=== PATIENT | male | born 1990 | race Two or more races ===

== ENCOUNTER 2024-07-10 16:13 | Emergency (ER) | payer MEDICAID, SELFPAY ==
[2024-07-10 16:16] VITALS: BMI 22.7
[2024-07-10 16:33] VITALS: BP 132/90; PULSE 74; RESP 18; TEMP 36.6; O2SAT 95
--- NOTE | 2024-07-10 16:33 | XR_ITS ---
Examination: PA lateral chest 2 views TECHNIQUE: Upright PA lateral chest 2 views Exam date and time: July 10, 2024 at 1639 hours INDICATIONS: Onset SOB today. FINDINGS: Normal heart size No pneumonia or pulmonary edema 5 mm nodule in the right lower lobe Intact osseous structures IMPRESSION: No pneumonia or pulmonary edema Recommend 6 month follow-up PA lateral chest to document stability of small pulmonary nodule right lower lobe
--- NOTE | 2024-07-10 16:33 | PD.EDADULT ---
ED General RME/HPI General Chief complaint: Flu Like Symptoms Stated complaint: cough x 1 mo, SOB x 3 days Time Seen by Provider: 07/10/24 16:33 Arrival date/time: 07/10/24 16:13 CC: Cough, with tightness in his chest HPI ongoing on for 1 month. Patient states he was seen by PCP and given medications which did not work. The patient denies fever chills no other persons around him are ill with similar symptoms. The patient is talking in full sentences with oxygen saturation of 95% on room air. No OTC medicines taken other than Tylenol. Not in any acute distress. Related Data Previous Rx's ?Medication ?Instructions ?Recorded meloxicam 7.5 mg tablet 7.5 mg PO QDAY #10 tabs 07/10/24 prednisone 20 mg tablet See Taper PO BID 3 days #6 tabs 07/10/24 Review of Systems Review of Systems Narrative Review of Systems: GEN: No fever, no chills, no weight loss EYES: No discharge, no visual changes, no pain HEENT: No ear pain, no congestion, no sore throat PULM: No shortness of breath, +cough, no congestion CV: No chest pain, no dyspnea on exertion, no palpitations GI: No nausea, no vomiting, no diarrhea, no pain, no constipation : No frequency, no urgency, no dysuria MUSC/SKEL: No joint pain, no back pain SKIN: No rash PSYCH: No hallucinations, no depression HEME/LYMPH: No easy bleeding or bruising tendencies NEURO: No weakness, no headache Past Medical History Social History SMOKING STATUS: Never smoker ED Exam Narrative Physical exam: [General: Not in any acute distress Head normocephalic HEENT: Within acceptable limits Neck is supple nontender Chest equal chest rise nontender to palpation Respiratory: Clear to auscultation no wheezes crackles or rubs CV: Rate rhythm is regular no murmurs rubs or clicks Abdomen is soft, nontender bowel sounds all 4 quadrants Back: No CVA tenderness no spinous process tenderness from cervical spine thoracic and lumbar spine Skin: Intact no petechiae rash induration ulceration or crepitus Extremities: Moving all extremity against resistance cap refill less than 2 seconds neurosensory intact Neuro: Awake alert oriented x3 Glascow coma 15 no focal deficits] Course Quality Measures none Orders Category Date Time Status Bedside Influenza A&B Antigen Test NOW Care 07/10/24 16:33 Completed XR chest 2V Stat Exams 07/10/24 16:33 Completed Vital Signs Vital signs: Vital Signs Temperature 98 F 07/10/24 16:33 Pulse Rate 74 07/10/24 16:33 Respiratory Rate 18 07/10/24 16:33 Blood Pressure 132/90 H 07/10/24 16:33 Pulse Oximetry (%) 95 07/10/24 16:33 Oxygen Delivery Method Room Air 07/10/24 16:33 [facility] Patient data External records reviewed:: [facility] previous records Clinical information provided by:: patient Social determinants that could affect healthcare access:: none Patient has the following chronic illnesses:: None How is presenting disease/condition affected by chronic disease/condition?: uneffected by Evaluation data The following diagnostics were reviewed and interpreted by me:: lab results and radiology exam(s) Lab and/or radiology exams considered but not ordered:: Influenza is negative Chest x-ray is negative Interpretation Summary: Viral syndrome Medications Medications considered but not ordered:: None Medication administrations:: None Consultations Consultation(s) initiated? (list below): No Diagnosis Differential Diagnosis ED Complaint MDM: Pneumonia viral syndrome URI Most likely diagnosis given after review of the tests above:: Viral syndrome Admission Indicated Admission indicated?: not indicated Explain why admission is indicated or not indicated:: Stable for outpatient follow-up Admission Request Was there a request for admission?: No Disposition Plan Disposition Plan: Discharge Discharge Attestation Discharge Attestation: The patient and all family members were given an opportunity to ask questions and understood the discharge instructions. Discharge instructions specifically effects, indications for sooner follow up or return to the emergency department, and the expected course of current diagnosis. Patient condition: Stable Medical Decision Making Differential Diagnosis Differential Diagnosis: Pneumonia viral syndrome URI Discharge Plan Plan Patient Disposition: HOME (Self Care) Patient condition on transfer: Stable Prescriptions/Referrals Prescriptions/Med Rec: New prednisone 20 mg tablet See Taper PO BID 3 Days Qty: 6 0RF Taper: Prednisone Taper 20 mg DAILY for 2 Days and 0 Hour 10 mg DAILY for 2 Days and 0 Hour 5 mg DAILY for 7 Days and 0 Hour meloxicam 7.5 mg tablet 7.5 mg PO QDAY Qty: 10 0RF Problem List Clinical Impression: Upper respiratory infection Patient/Caregiver Discharge Instructions Education Materials: ED URI, Viral, No Abx (Adult) Print Language: Japanese Stand Alone Forms: Ka[employer] Award Info., Patient Portal Info Letter, Work/School Release PA/PICKING SUPERVISOR Supervising Physician PA/PICKING SUPERVISOR Supervising Physician: Russell Reyes ENP
== END 2024-07-10 18:01 | disposition home or self-care (01) ==
PROVIDERS: Emergency Provider Emergency Medicine; PCP Physician Assistant
DX: J06.9 Acute upper respiratory infection, unspecified (principal)
CPT/HCPCS: 71046; 87400; 99283